=== PATIENT | female | born 1960 | race American Indian/Alaskan Native ===

== ENCOUNTER 2025-07-27 14:47 | Emergency (ER) | payer SELFPAY ==
[2025-07-27] VITALS (11 sets, daily range): BP systolic 143–182; BP diastolic 63–73; PULSE 60–87; RESP 14–26; TEMP 36.4; O2SAT 97–100; BMI 19.3
--- NOTE | 2025-07-27 16:53 | ED.LOWEXIN ---
HPI - Extremity Injury (Lower) General Chief Complaint: Extremity Injury, Lower Stated Complaint: GLF - hit head Time Seen by Provider: 07/27/25 14:58 Source: patient and EMS Mode of arrival: EMS History of Present Illness HPI Narrative: 64-year-old female was at a today as she was leaving the service she rolled over her right leg falling on her back and hitting her head against the ground. Patient denies any headache blurred vision chest pain neck pain numbness tingling down the arms or legs bowel or bladder incontinence shortness of breath dyspnea on exertion. Other than what is stated 14 point review system is negative. Related Data Home Medications ?Medication ?Instructions ?Recorded ?Confirmed acetaminophen 325 mg tablet PRN ##0 01/05/10 Allergies Allergy/AdvReac Type Severity Reaction Status Date / Time No Known Drug Allergies Allergy Verified 07/27/25 14:56 Review of Systems Review of Systems ROS Unobtainable: All systems reviewed & are unremarkable except as noted in HPI and below Patient History Smoking Status: Never smoker Exam Narrative Exam Narrative: GENERAL: [64] year old patient appears stated age. Well-developed patient, in mild distress. HEAD: Atraumatic. Normocephalic. EYES: Pupils equal round and reactive. Extraocular motions intact. No scleral icterus. No injection or drainage. ENT: Nose without bleeding, purulent drainage. Throat without erythema, tonsillar hypertrophy or exudate. Airway patent. NECK: Trachea midline. Non tender CARDIOVASCULAR: Regular rate and rhythm without murmurs, gallops, or rubs. RESPIRATORY: Clear to auscultation. Breath sounds equal bilaterally. No wheezes, rales, or rhonchi. GASTROINTESTINAL: Abdomen soft, non-tender, nondistended. EXTREMITIES: No edema or joint tenderness. BACK: Nontender without deformity or crepitance. No flank tenderness. NEURO: AOx3. SKIN: No rash or erythema of visible areas Initial Vital Signs Initial Vital Signs: Vital Signs Temperature 97.5 F L 07/27/25 14:55 Pulse Rate 87 07/27/25 14:55 Respiratory Rate 14 07/27/25 14:55 Blood Pressure 182/71 H 07/27/25 14:55 Pulse Oximetry 97 07/27/25 14:55 Oxygen Delivery Method Room Air 07/27/25 14:55 Course Vital Signs Vital signs: Vital Signs - 8 hr 07/27/25 14:55 07/27/25 15:25 07/27/25 15:26 Temperature 97.5 F L Pulse Rate 87 73 Respiratory Rate 14 Blood Pressure 182/71 H 147/63 H Pulse Oximetry 97 Oxygen Delivery Method Room Air 07/27/25 15:26 07/27/25 15:30 07/27/25 15:30 Temperature Pulse Rate 65 60 Respiratory Rate 18 19 Blood Pressure 143/65 H Pulse Oximetry 97 100 Oxygen Delivery Method 07/27/25 16:00 07/27/25 16:00 07/27/25 16:30 Temperature Pulse Rate 62 64 Respiratory Rate 21 23 Blood Pressure 143/67 H Pulse Oximetry 100 99 Oxygen Delivery Method 07/27/25 16:30 Temperature Pulse Rate Respiratory Rate Blood Pressure 144/65 H Pulse Oximetry Oxygen Delivery Method MDM - Extremity Injury (Lower) Imaging Data CT scan - head: Radiologist's Impression: [address] [address] [address] Scan Report Signed Patient: Grace Cervantes MR#: [id number] : 1960 Acct:[id number] Age/Sex: 64 / F Date of Service: 07/27/25 Loc: ED Accession Number: [id number] Procedure: CT head/brain wo con Ordering Provider: Elton Tamayo D.O. PROCEDURE: CT HEAD/BRAIN WO CON INDICATIONS: fall trauma TECHNIQUE: Noncontrast 4.5 mm thick angled axial sections acquired from the foramen magnum to the vertex, with coronal and sagittal reformats. For radiation dose reduction, the following was used: automated exposure control, adjustment of mA and/or kV according to patient size. COMPARISON: None. FINDINGS: Image quality: Diagnostic. CSF spaces: Basal cisterns are patent. No extra-axial fluid collections. Ventricles are normal in size and shape. Brain: No midline shift. No intracranial mass effect or hemorrhage. Capone-white matter interface is normal. Diffuse parenchymal volume loss with expansion the CSF containing spaces. Skull and face: Calvarium and visualized facial bones are intact, without suspicious lesions. Sinuses: Visualized sinuses and mastoids are clear. IMPRESSION: No acute intracranial pathology. Extremity x-ray #1: Radiologist's Impression: [address] [address] XRay Report Signed Patient: Grace Cervantes MR#: [id number] : 1960 Acct:[id number] Age/Sex: 64 / F Date of Service: 07/27/25 Loc: ED Accession Number: [id number] Procedure: XR ankle RT min 3V Ordering Provider: Elton Tamayo D.O. PROCEDURE: XR ANKLE RT MIN 3V INDICATIONS: trauma TECHNIQUE: 3 views of the ankle were acquired. COMPARISON: None. FINDINGS: Bones: No fractures or dislocations. Ankle mortise is normally aligned. No suspicious bony lesions. Calcaneal these fight Soft tissues: No tibiotalar joint effusion. Achilles tendon appears normal. IMPRESSION: No acute bony abnormality or significant effusion. MDM Narrative Medical decision making narrative: All labwork, vital signs, wholesale account manager note, medication list, and previous ER visits all reviewed. Ct head and R ankle xray all reviewed no acute process. She is able to ambulate. GCS 15 nonfocal neuro exam. Differential diagnosis hemorrhage, contusion, sprain, fracture, dislocation. Offered ankle splint pt declined Discharge Plan Departure Patient Disposition: Home Clinical Impression: Fall Qualifiers: Encounter type: initial encounter Qualified Code(s): W19.XXXA - Unspecified fall, initial encounter Acute ankle pain Qualifiers: Laterality: right Qualified Code(s): M25.571 - Pain in right ankle and joints of right foot CHI (closed head injury) Qualifiers: Encounter type: initial encounter Qualified Code(s): S09.90XA - Unspecified injury of head, initial encounter Instructions: DI for Ankle Pain Activity Restrictions/Additional Instructions: Return with new or worsening symptoms. Prescriptions: No Action acetaminophen 325 MG tablet PRN Qty: 0 Stand Alone Forms: Patient Portal/API
--- NOTE | 2025-07-27 16:54 | DI.RAD.S_ITS ---
PROCEDURE: XR ANKLE RT MIN 3V INDICATIONS: trauma TECHNIQUE: 3 views of the ankle were acquired. COMPARISON: None. FINDINGS: Bones: No fractures or dislocations. Ankle mortise is normally aligned. No suspicious bony lesions. Calcaneal these fight Soft tissues: No tibiotalar joint effusion. Achilles tendon appears normal. IMPRESSION: No acute bony abnormality or significant effusion. Dictated by: Taiwo Reddy M.D. on 07/27/2025 at 16:49 Approved by: Taiwo Reddy M.D. on 07/27/2025 at 16:53
== END 2025-07-27 18:38 | disposition home or self-care (01) ==
PROVIDERS: Emergency Provider Family Medicine
DX: S09.90XA Unspecified injury of head, initial encounter (principal); M25.571 Pain in right ankle and joints of right foot; W18.30XA Fall on same level, unspecified, initial encounter
CPT/HCPCS: 70450; 73610; 99281; 99284